=== PATIENT | female | born 1975 | race Asian ===

== ENCOUNTER 2017-03-07 20:01 | Emergency (ER) | payer MEDICAID ==
[~2017-03-07] VITALS: Ht 165.1 cm; Wt 75.0 kg
[2017-03-07 23:20] VITALS: BP 111/74
== END 2017-03-07 23:20 | disposition home or self-care (01) ==
LOC: ER 22:49
DX: O26.892 Other specified pregnancy related conditions, second trimester (principal); M54.10 Radiculopathy, site unspecified; M19.90 Unspecified osteoarthritis, unspecified site; Z3A.20 20 weeks gestation of pregnancy
CPT/HCPCS: 99281